=== PATIENT | female | born 1980 | race Caucasian/White ===

== ENCOUNTER 2018-05-18 08:47 | Emergency (ER) | payer BC, OTHER ==
[~2018-05-18] VITALS: Ht 162.6 cm; Wt 76.2 kg
[2018-05-18 09:10] VITALS: BP 150/57
[2018-05-18 09:19] LABS: Urine WBC None Seen /hpf (0 - 5)
[2018-05-18 09:30] LABS: Urine Bacteria NONE SEEN /hpf (None Seen); Urine Blood Negative /uL (Negative); Urine Mucus FEW (None Seen); Urine Specific Gravity 1.026 (1.001-1.035)
== END 2018-05-18 10:51 | disposition left against medical advice (07) ==
LOC: ER 08:51
DX: R10.31 Right lower quadrant pain (principal); Z53.21 Procedure and treatment not carried out due to patient leaving prior to being seen by health care provider
CPT/HCPCS: 81001